=== PATIENT | female | born 1980 | race Caucasian/White ===

== ENCOUNTER 2019-07-03 16:00 | Emergency (ER) | payer OTHER ==
[~2019-07-03] VITALS: Ht 162.6 cm; Wt 77.1 kg
== END 2019-07-03 21:39 | disposition home or self-care (01) ==
LOC: ER 16:00
DX: R30.0 Dysuria (principal)

== ENCOUNTER 2022-11-04 13:37 | Outpatient (CLI) | payer OTHER | END 2022-11-04 13:39 | disposition home or self-care (01) | LOC: NUCLEAR 13:37 | PROVIDERS: ATTEND Internal Medicine | DX: M81.0 Age-related osteoporosis without current pathological fracture (principal); M85.80 Other specified disorders of bone density and structure, unspecified site ==

== ENCOUNTER 2022-12-06 18:22 | Emergency (ER) | payer OTHER ==
[~2022-12-06] VITALS: Ht 165.1 cm; Wt 67.1 kg
== END 2022-12-07 01:56 | disposition home or self-care (01) ==
LOC: ER 18:22
DX: K29.70 Gastritis, unspecified, without bleeding (principal); N94.6 Dysmenorrhea, unspecified; R10.9 Unspecified abdominal pain

== ENCOUNTER 2024-07-26 03:31 | Emergency (ER) | payer OTHER ==
[~2024-07-26] VITALS: Ht 167.6 cm; Wt 775.6 kg
[2024-07-26] MEDS ORDERED: DEXAMETHASONE SODIUM PHOSPHATE 4 MG/ML VIAL IM STA (08:53)
[2024-07-26] MEDS ORDERED: DEXAMETHASONE SODIUM PHOSPHATE 4 MG/ML VIAL ONE (09:02)
[2024-07-26 09:51] LABS: HEMOGLOBIN 13.6 g/dL (12.0-15.00); MEAN CORPUSCULAR HEMOGLOBIN 30.8 pg (27.00-32.0); MEAN CORPUSCULAR HGB CONC 33.1 g/dl (32.0-36.0); PLATELET COUNT 255 K/uL (150-450); RED BLOOD COUNT 4.41 M/uL (4.00-6.00); RED CELL DISTRIBUTION WIDTH 14.1 % (11.5-14.5)
[2024-07-26 10:32] LABS: CALCIUM 9.4 mg/dL (8.5-10.1); CREATININE SERUM 0.61 mg/dL (0.55-1.02); GFR 105.59; POTASSIUM 3.81 mEq/L (3.5-5.1)
[2024-07-26 11:43] LABS: URINE APPEARANCE Clear; URINE BILIRRUBIN Negative (NEGATIVE); URINE BLOOD Negative; URINE COLOR Yellow; URINE GLUCOSE Negative (NEGATIVE); URINE KETONE Negative (NEGATIVE); URINE LEUKOCYTE Trace; URINE NITRATE Negative; URINE PROTEIN Negative (NEGATIVE); URINE UROBILINOGEN 0.2 E.U./dl
[2024-07-26 11:50] LABS: URINE BACTERIA 2685.2 uL (0.0-1933); URINE EPITHELIAL CELLS 28.3 uL (0.0-38.8); URINE RBC 15.6 uL (0.0-20.8); URINE WBC 42.7 uL (0.0-23.2)
[2024-07-26 12:33] LABS: URINE CAST 0.14 uL (0.0-1.40)
== END 2024-07-26 14:47 | disposition home or self-care (01) ==
LOC: ER 03:31
PROVIDERS: General Practice
DX: M51.26 Other intervertebral disc displacement, lumbar region (principal)